=== PATIENT | male | born 1995 | race Caucasian/White ===

== ENCOUNTER 2023-05-31 15:42 | Emergency (ER) | payer OTHER ==
[~2023-05-31] VITALS: Ht 182.9 cm; Wt 117.9 kg
[2023-05-31 15:47] VITALS: O2SAT 97
[2023-05-31] MEDS ORDERED: DOXY100T2 PO (16:12)
[2023-05-31] MEDS ORDERED: CIPR2.5D14 RIGHTEYE (16:12)
== END 2023-05-31 16:38 | disposition home or self-care (01) ==
LOC: ER 15:45
DX: H10.9 Unspecified conjunctivitis (principal); J02.9 Acute pharyngitis, unspecified; Z79.2 Long term (current) use of antibiotics
CPT/HCPCS: A4606; A4663